=== PATIENT | female | born 1985 | race Caucasian/White ===

== ENCOUNTER → 2020-07-27 | Outpatient (CLI) | payer OTHER ==
--- NOTE | 2020-07-28 10:37 | US ---
EXAMINATION TYPE: US pelvic complete DATE OF EXAM: 07/27/2020 COMPARISON: NONE CLINICAL HISTORY: N85.2 Enlarged uterus N92.0. Menorrhagia TECHNIQUE: Transvaginal (TV) and Transabdominal (TA) . Transabdominal sonographic images of the pel vis were acquired. Transvaginal sonographic images were medically necessary to better assess the fol lowing anatomy: endometrium, myometrium and ovaries Date of LMP: 07/19/2020 EXAM MEASUREMENTS: Uterus: 7.9 x 5.7 x 4.1 cm Endometrial Stripe: 0.6 cm Right Ovary: 2.4 x 1.7 x 1.5 cm Left Ovary: 2.7 x 2.5 x 2.0 cm 1. Uterus: Anteverted; multiple uterine fibroids seen with largest consolidation seen upper myometri um = 3.1 x 3.3 x 3.3cm. 2. Endometrium: thickness is wnl for Day 9 LMP 3. Right Ovary: couple of follicles seen with larger involuting follicular cyst = 0.9 x 1.7 x 0.6cm 4. Left Ovary: multifollicular with largest simple cyst = 1.5 x 1.6 x 0.9cm 5. Bilateral Adnexa: wnl 6. Posterior cul-de-sac: complex cystic, oval area seen = 5.1 x 3.3 x 2.8 and may be peritoneal inc lusion cyst. IMPRESSION: 1. Bilateral ovarian cysts. Follow-up exam in 6 weeks be performed. 2. Additional complex 5 cm cyst not assessed directly associated with the ovaries. Consider peritonea l or mesenteric cyst within the differential. CT pelvis could be performed for additional evaluation.
== END | disposition home or self-care (01) ==
LOC: RADUSWWP 15:36
PROVIDERS: ATTEND Obstetrics & Gynecology
DX: N83.202 Unspecified ovarian cyst, left side (principal); N83.201 Unspecified ovarian cyst, right side
CPT/HCPCS: 76830; 76856

== ENCOUNTER → 2022-12-20 | Outpatient (CLI) | payer BC ==
--- NOTE | 2022-12-20 12:30 | P.SLEEP ---
History of Present Illness DATE: 12/20/2022 CONSULTATION/NEW PATIENT EVALUATION HISTORY OF PRESENT ILLNESS/SLEEP-WAKE EVALUATION: 37-year-old lady had been evaluated in the sleep center for possible obstructive sleep apnea hypopnea syndrome and significant excessive daytime sleepiness. SLEEP SCHEDULE: Usually sleep schedule 8 PM to 9 AM 7 days a week. FALLING ASLEEP: No problems with falling asleep. DURING SLEEP: Patient snores and wakes up from sleep at least once. No history of hypnogogical hallucinations, sleep paralysis, or cataplexy. DURING THE DAY/WAKE STATE: In the morning patient wake up tired, falling asleep during the day, has problems with concentration and irritability. Bow sleepiness scale is in very high level of 20. Patient takes nap at 1 PM and can do several naps during the day. PAST MEDICAL HISTORY: And depression, anxiety, anemia. PAST SURGICAL HISTORY: Sebaccous cysts removed from the scalp. MEDICATIONS: Cymbalta once a day, Abilify 2 mg once a day. SOCIAL HISTORY: Positive history of smoking one quarter of pack per day for 6 months in the past, alcohol consumption occasional. FAMILY HISTORY: Sleep apnea, diabetes, hypertension, heart problems. REVIEW OF SYSTEMS: Snoring, significant excessive daytime sleepiness. No fevers. No double vision. No recent chest pain. No shortness of breath. No abdominal pain. No bleeding episodes. No blood in urine. No seizure episodes. PHYSICAL EXAMINATION: GENERAL: A pleasant patient without any distress. VITAL SIGNS: BP 128/82 , HR 100 , RR 16 , weight 270 pounds, height 5 foot 9.25 inches, body mass index 39.6 . HEENT: PERRLA, EOMI. Evaluation of oropharynx showed tongue protrudes midline, low position of soft palate Mallampati 4. NECK: Supple. No JVD. Thyroid is not palpable. 17 inches in circumference. LUNGS: Clear to percussion and to auscultation. Good air exchange. No wheezing or rhonchi. HEART: S1, S2 regular. No murmurs, gallops or rubs. ABDOMEN: Soft and nontender. Bowel sounds are present. No organomegaly appreciated. EXTREMITIES: No clubbing or cyanosis. MANIPULATIVE THERAPY SPECIALIST: Awake, alert, and oriented x3. Cranial nerves 2 to 7 intact. There is no fasciculation or atrophy noted. No focal deficits observed. ASSESSMENT: 1. Snoring, awakenings from sleep, extremely low position of soft palate Mallampati 4, wide neck 17 inches in circumference, sleepiness, retrognathia 2 mm. Obstructive sleep apnea hypopnea syndrome. 2. Significant excessive daytime sleepiness with very high Bow Sleepiness Scale of 28 necessity to include narcolepsy type II and idiopathic hypersomnia in differential diagnosis. 3. History of depression. 4. History of anxiety. 5 obesity BMI 39.6. PLAN: 1. Home sleep apnea test for evaluation of patient's breathing during sleep. 2. CPAP/BiPAP titration if sleep study confirms obstructive sleep apnea- hypopnea syndrome. 3. Preferable position during sleep on the side. 4. No driving if patient feels any sleepiness. Patient is aware of civil and criminal liability for unsafe driving. 5. Sleep hygiene with regular sleep time for at least 7.5-8 hours. 6. Watching and losing weight. 7. Patient will need multiple sleep latency test if no physical abnormalities of sleep. Thank you very much for referring this patient for consultation. Sincerely, James Saldaña MD, PhD, FAASM. Diplomat of [employer], Sleep Medicine Board by [employer] - Sleep Note Sleep Note: Temperature: Pulse Rate: Respiratory Rate: Blood Pressure: SpO2: Height: Weight: BMI: Neck Circumference:
== END ==
LOC: 3 N SLEEP 11:41
PROVIDERS: ATTEND Internal Medicine
DX: G47.33 Obstructive sleep apnea (adult) (pediatric) (principal); F41.9 Anxiety disorder, unspecified; F32.A Depression, unspecified; E66.9 Obesity, unspecified; Z68.39 Body mass index [BMI] 39.0-39.9, adult; Z99.89 Dependence on other enabling machines and devices
CPT/HCPCS: 99211